=== PATIENT | female | born 1990 | race Caucasian/White ===

== ENCOUNTER 2016-10-13 13:36 | Emergency (ER) | payer OTHER ==
[2016-10-13 13:44] VITALS: BP 128/65
--- NOTE | 2016-10-13 13:57 | UC ---
Throat Pain/Nasal Colin HPI - HPI Summary HPI Summary: worsening sore throat for the past 3 days - History of Current Complaint Chief Complaint: UCRespiratory Stated Complaint: THROAT PAIN Time Seen by Provider: 10/13/16 13:42 Hx Obtained From: Patient Hx Last Menstrual Period: 09/30/16 ?: No Onset/Duration: Sudden Onset, Lasting Days - 3, Still Present Severity: Moderate Pain Intensity: 5 Pain Scale Used: 0-10 Numeric Cough: None Associated Signs & Symptoms: Positive: Nasal Discharge - Allergies/Home Medications Allergies/Adverse Reactions: Allergies Allergy/AdvReac Type Severity Reaction Status Date / Time No Known Allergies Allergy Verified 03/18/16 17:17 Home Medications: Home Medications Ascorbic Acid TAB* [Vitamin C TAB*] 500 mg PO DAILY 10/13/16 [History Confirmed 10/13/16] Ibuprofen [Advil] 800 mg PO 10/13/16 [History] Vitamin B Complex TAB* [Complex B-100*] 10/13/16 [History] PMH/Surg Hx/FS Hx/Imm Hx Previously Healthy: No Endocrine History Of: Denies: Diabetes, Thyroid Disease Cardiovascular History Of: Denies: Cardiac Disorders, Hypertension Respiratory History Of: Denies: COPD, Asthma GI/ History Of: Denies: Ulcer Psychological History Of: Reports: Depression - Surgical History Surgical History: None - Family History Known Family History: Negative: Diabetes Family History: no reported cardio vascular issues in family lineage, no recent illness exposures - Social History Occupation: Employed Full-time, Student Lives: With Family Alcohol Use: None Substance Use Type: None Smoking Status (MU): Never Smoked Tobacco - Immunization History Most Recent Influenza Vaccination: unknown Most Recent Tetanus Shot: unknown Most Recent Pneumonia Vaccination: none Review of Systems Constitutional: Negative Skin: Negative Eyes: Negative ENT: Sore Throat, Ear Ache, Nasal Discharge Respiratory: Cough Cardiovascular: Negative Gastrointestinal: Negative Genitourinary: Negative Motor: Negative Neurovascular: Negative Musculoskeletal: Myalgia Neurological: Negative Psychological: Negative All Other Systems Reviewed And Are Negative: Yes Physical Exam Triage Information Reviewed: Yes Appearance: Well-Appearing, No Pain Distress, Well-Nourished Vital Signs: Initial Vital Signs Temp 97.8 F 10/13/16 13:39 Pulse 69 10/13/16 13:39 Resp 18 10/13/16 13:39 BP 128/65 10/13/16 13:39 Pulse Ox 100 10/13/16 13:39 Vital Signs Reviewed: Yes Eye Exam: Normal Eyes: Positive: Conjunctiva Clear ENT Exam: Normal ENT: Positive: Normal ENT inspection, Hearing grossly normal, Pharyngeal erythema, TMs normal, Tonsillar swelling. Negative: Nasal congestion, Nasal drainage, Trismus, Muffled/hoarse voice Dental Exam: Normal Neck exam: Normal Neck: Positive: Supple, Nontender, No Lymphadenopathy Respiratory Exam: Normal Respiratory: Positive: Chest non-tender, Lungs clear, Normal breath sounds, No respiratory distress, No accessory muscle use Cardiovascular Exam: Normal Cardiovascular: Positive: RRR, No Murmur, Pulses Normal, Brisk Capillary Refill Musculoskeletal Exam: Normal Musculoskeletal: Positive: Strength Intact, ROM Intact, No Edema Neurological Exam: Normal Neurological: Positive: Alert, Muscle Tone Normal Psychological Exam: Normal Skin Exam: Normal Diagnostics - Laboratory Diagnostic Studies Completed/Ordered: RST (-) Throat Pain/Nasal Course/Dx - Course Assessment/Plan: increase fluids, tylenol, ibuprofen prednisone, follow with pcp in 3-4 days should symptoms worsen or fail the improve - Differential Dx/Diagnosis Differential Diagnosis/HQI/PQRI: Mononucleosis, Pharyngitis, Sinusitis, URI Provider Diagnoses: Viral upper respiratory infection Discharge - Discharge Plan Condition: Stable Disposition: HOME Prescriptions: predniSONE TAB* [Deltasone TAB*] 50 mg PO DAILY #4 tab Patient Education Materials: Prednisone (By mouth), Pharyngitis (ED), Viral Syndrome (ED) Referrals: Jeremías Wilson MD [Primary Care Provider] - 4 Days
== END 2016-10-13 14:36 | disposition home or self-care (01) ==
LOC: UCEAST 13:36
DX: J06.9 Acute upper respiratory infection, unspecified (principal); F32.9 Major depressive disorder, single episode, unspecified
CPT/HCPCS: 87651; 99212; G0463

== ENCOUNTER 2017-01-06 09:20 | Emergency (ER) | payer OTHER ==
[2017-01-06] MEDS ORDERED: NS 0.9% 1000 ML* 1,000 ML IV ONE (11:49)
[2017-01-06] MEDS ORDERED: Ketorolac INJ* 30 MG/ML 1 ML VIAL IV ONE (11:49)
[2017-01-06] MEDS ORDERED: diPHENhydraMINE IV* 50 MG/ML 1 ml VIAL (BENADRYL) IV ONE (11:53)
[2017-01-06] MEDS ORDERED: Ondansetron INJ* 2 MG/ML VIAL IV ONE (11:53)
[2017-01-06 13:58] VITALS: BP 118/68
--- NOTE | 2017-01-06 17:02 | UC ---
Elizabeth Atkins Edward, scribed for Trina Hong DO on 01/06/17 at 1133 . Headache HPI - HPI Summary HPI Summary: 26 y/o female presents to [facility] c/o gradual onset, diffuse, throbbing CHASE for the past 4 days. Patient states the CHASE started as a mild CHASE but got "incredibly worse" today, rated at 10/10 @ triage. Pain is "worse than pain from childbirth ". Patient says this feels more intense than a normal migraine. Patient has been vomiting due to pain (at least 5 episodes in the past 24 hours). The pain is aggravated by bright lights and movement. Associated sx: sore throat ( yesterday but resolved now), lightheadedness and photophobia. Denies body aches , fever, chills, diarrhea, and ABD pain. PMHx migraines. FHx DM, HTN - mom, stroke - grandpa in 70's, cousin of a brain tumor @ 42 y/o. NKDA. Past medications reviewed on visit. - History Of Current Complaint Chief Complaint: UCHeadache Stated Complaint: HEADACHE Hx Obtained From: Patient Hx Last Menstrual Period: 12/21/16 Onset/Duration: Gradual Onset, Lasting Days - 4, Still Present Onset Of Symptoms: Gradual, Still Present Initially Headache Was: Mild Currently Pain Is: Severe Pain Intensity: 10 Pain Scale Used: "Not the worst CHASE ever", but worse than childbirth Timing: Constant Character: Throbbing Location of Headache: Diffuse Aggravating Factor: Position Change, Bright Lights Associated Signs And Symptoms: Positive: Nausea, Vomiting, Other (Noted In Comments) - Positive: sore throat (yesterday but resolved now). Denies body aches, fever, chills, diarrhea, and ABD pain.. Negative: Fever - Allergies/Home Medications Allergies/Adverse Reactions: Allergies Allergy/AdvReac Type Severity Reaction Status Date / Time No Known Allergies Allergy Verified 03/18/16 17:17 Home Medications: Home Medications Acetaminophen [Eq Acetaminophen] 650 mg PO 01/06/17 [History] PMH/Surg Hx/FS Hx/Imm Hx Previously Healthy: No Neurological History: Migraine - Surgical History Surgical History: None - Family History Known Family History: Positive: Hypertension - mom, Diabetes - Mom, Other - Brain cancer - cousin @ 40s. Grandpa - stroke Family History: no reported cardio vascular issues in family lineage, no recent illness exposures - Social History Occupation: Employed Part-time Lives: Alone Alcohol Use: None Substance Use Type: None Smoking Status (MU): Never Smoked Tobacco - Immunization History Most Recent Influenza Vaccination: unknown Most Recent Tetanus Shot: unknown Most Recent Pneumonia Vaccination: none Review of Systems Constitutional: Negative - No fever, chills Skin: Negative Eyes: Negative ENT: Sore Throat - resolved now Respiratory: Negative Cardiovascular: Negative Gastrointestinal: Vomiting - due to pain, Nausea Genitourinary: Negative Motor: Negative Neurovascular: Negative Musculoskeletal: Negative Neurological: Headache, Other - lightheadedness. photophobia Psychological: Negative All Other Systems Reviewed And Are Negative: Yes Physical Exam Triage Information Reviewed: Yes Appearance: Well-Appearing, Well-Nourished, Pain Distress - Moderate Vital Signs: Initial Vital Signs Temp 97.9 F 01/06/17 10:31 Pulse 73 01/06/17 10:31 Resp 18 01/06/17 10:31 BP 120/72 01/06/17 10:31 Pulse Ox 100 01/06/17 10:31 Vital Signs Reviewed: Yes Eyes: Positive: Conjunctiva Clear. Negative: Discharge ENT: Positive: Hearing grossly normal. Negative: Muffled/hoarse voice Neck: Positive: Supple, Nontender Respiratory: Positive: Lungs clear, Normal breath sounds, No respiratory distress, No accessory muscle use Cardiovascular: Positive: RRR, No Murmur Musculoskeletal Exam: Normal Neurological Exam: Normal - A&Ox3, CN II-XII INTACT, SENSORY MOTOR INTACT, REFLEXES INTACT, NO CEREBELLAR SIGNS, FACIAL SYMMETRY, NEGATIVE ROMBERG, NORMAL GAIT, negative kernig's and brudzinsky's Neurological: Positive: Alert, Muscle Tone Normal Psychological: Positive: Age Appropriate Behavior Skin Exam: Normal, Other - Warm, dry, normal color Re-Evaluation - Re-Evaluation 1 Re-Evaluation Time: 13:00 Change: Improved - No change of CHASE, but nausea has approved following treatment of Zofran @ 12:37 Headache Course/Dx - Differential Dx/Diagnosis Differential Diagnosis/HQI/PQRI: Meningitis, Migraine, Sinus Headache, Tension Headache, Viral Syndrome, Other - lyme, brain mass, Provider Diagnoses: chase Discharge - Discharge Plan Condition: Stable Disposition: [facility] Referrals: Jeremías Wilson MD [Primary Care Provider] - The documentation as recorded by the Elizabeth yu Edward accurately reflects the service I personally performed and the decisions made by , Trina Hong DO.
== END 2017-01-06 14:00 | disposition short-term general hospital (02) ==
LOC: UCEAST 09:20
DX: R51 Headache (principal); Z82.3 Family history of stroke; Z84.89 Family history of other specified conditions
CPT/HCPCS: 96360; 96361; 96365; 96374; 96375; 99213; G0463; J1200; J1885; J2405

== ENCOUNTER 2017-01-06 14:30 | Emergency (ER) | payer OTHER ==
[2017-01-06] MEDS ORDERED: Morphine INJ* 4 MG/ML 1 ML SYRINGE IV ONE (14:53)
[2017-01-06] MEDS ORDERED: NS 0.9% 1000 ML* 2,000 ML IV ONE (14:53)
[2017-01-06] MEDS ORDERED: Metoclopramide IV* 5 MG/ML 2 ML VIAL IV ONE (14:53)
[2017-01-06] MEDS ORDERED: diPHENhydraMINE IV* 50 MG/ML 1 ml VIAL (BENADRYL) IV ONE (14:53)
[2017-01-06 15:48] LABS: Hematocrit 39 % (35-47); Hemoglobin 13.1 g/dl (12.0-16.0); Mean Corpuscular HGB Conc 33 g/dl (31-36); Mean Corpuscular Hemoglobin 29 pg (27-31); Mean Corpuscular Volume 87 fL (80-97); Mean Platelet Volume 9 um3 (7.4-10.4); Red Blood Count 4.49 10^6/ul (4.0-5.4); Red Cell Distribution Width 13 % (10.5-15); White Blood Count 6.3 10^3/ul (3.5-10.8)
[2017-01-06 16:04] LABS: ALT 12 U/L (7-52); AST 13 U/L (13-39); Albumin 3.6 g/dL (3.2-5.2); Alkaline Phosphatase 74 U/L (34-104); Anion Gap 9 mmol/L (2-11); BUN/Creatinine Ratio 9.7 (8-20); Blood Urea Nitrogen 7 mg/dL (6-24); CO2 Carbon Dioxide 20 mmol/L (22-32); Calcium 8.4 mg/dL (8.6-10.3); Chloride 109 mmol/L (101-111); EGFR Non-African American 99.5 (>60); Globulin 3.2 g/dL (2-4); Glucose 68 mg/dL (70-100); Sodium 138 mmol/L (133-145); Total Protein 6.8 g/dL (6.4-8.9)
--- NOTE | 2017-01-06 16:23 | RAD ---
Indication: Headaches. CT of the brain was performed without IV contrast. Ventricular structures are midline. No midline shift is noted. The extra-axial spaces are unremarkable. There is no evidence of intracranial mass or hemorrhage. Air-fluid level is noted in the left maxillary sinus consistent with sinusitis. There is mucosal thickening of the ethmoid air cells as well as in the sphenoid sinuses. Bony structures are otherwise unremarkable. IMPRESSION: No intracranial mass or hemorrhage is noted. Mucosal thickening of the ethmoid air cells and sphenoid sinuses with air-fluid level in the left maxillary sinus consistent with chronic and acute sinusitis.
[2017-01-06] MEDS ORDERED: cefTRIAXone(*) 1 GM in NS 0.9% 50 ML* 50 ML IVPB ONE (16:27)
[2017-01-06 16:28] LABS: Erythrocyte Sed Rate 31 mm/Hr (0-14)
[2017-01-06] MEDS ORDERED: Ketorolac INJ* 30 MG/ML 1 ML VIAL IV PUSH ONE (17:48)
[2017-01-06 18:52] VITALS: BP 137/71
--- NOTE | 2017-01-06 18:57 | ED ---
Brenda Atkins Thomas, scribed for Cale Conner MD on 01/06/17 at 1450 . Headache - HPI Summary HPI Summary: The pt is a 26 y/o F presenting to the ED c/o a CHASE that began 4 days ago. The CHASE has become progressively worse since onset and is located in the "entire skull". She rates the pain 10/10. She has had migraine headaches and tension headaches in the past, but "nothing like this". She reports that she used to have HAs that were similar to this 8 years ago. She additionally c/o a sore throat, nausea (this AM), photophobia, vomiting (this AM), neck pain, leg pain, fever (2 days ago but afebrile in the ED). The pt denies CP and SOB. PMHx: depression. PSHx: no smoking, no alcohol, no drugs. - History Of Current Complaint Chief Complaint: EDHeadache Stated Complaint: HEADACHE Time Seen by Provider: 01/06/17 14:45 Hx Obtained From: Patient Hx Last Menstrual Period: 12/21/16 Onset/Duration: Gradual Onset, Started days ago - 4 days, Still Present Currently Pain Is: Current Pain Scale(0-10)= - 10 Timing: Constant Location of Headache: Other: - "entire skull" Associated Signs And Symptoms: Nausea, Vomiting, Fever - afebrile in ED, febrile 2 days ago, Neck Pain, Visual Changes - photophobia, Other (Noted In Comments) - POS: sore throat, leg pain Related History: Similar Episode/DX As: - somewhat similar to CHASE 8 years ago - Allergies/Home Medications Allergies/Adverse Reactions: Allergies Allergy/AdvReac Type Severity Reaction Status Date / Time No Known Allergies Allergy Verified 03/18/16 17:17 PMH/Surg Hx/FS Hx/Imm Hx Previously Healthy: No Endocrine/Hematology History: Denies: Hx Diabetes, Hx Thyroid Disease Cardiovascular History: Denies: Hx Hypertension Respiratory History: Denies: Hx Asthma, Hx Chronic Obstructive Pulmonary Disease (COPD) GI History: Denies: Hx Ulcer Psychiatric History: Reports: Hx Depression Infectious Disease History: No Infectious Disease History: Denies: Hx Hepatitis, Hx Human Immunodeficiency Virus (HIV), Traveled Outside the [place] in Last 30 Days - Family History Known Family History: Negative: Hypertension, Diabetes Family History: no reported cardio vascular issues in family lineage, no recent illness exposures - Social History Alcohol Use: None Substance Use Type: Reports: None Smoking Status (MU): Never Smoked Tobacco Review of Systems Positive: Fever - afebrile in ED but febrile 2 days ago Positive: Photophobia Positive: Sore Throat Cardiovascular: Negative Negative: Chest Pain Respiratory: Negative Negative: Shortness Of Breath Positive: Vomiting - this AM, Nausea - this AM Genitourinary: Negative Musculoskeletal: Other - POS: neck pain, leg pain Skin: Negative Positive: Headache - gradual onset 4 days ago and progressively worse, 04/02, "entire skull" Psychological: Normal All Other Systems Reviewed And Are Negative: Yes Physical Exam - Summary Physical Exam Summary: VITAL SIGNS: Reviewed. GENERAL: ~Patient is a well-developed and nourished (MALE OR FEMALE) who is lying comfortable in the stretcher. ~Patient is not in any acute respiratory distress. HEAD AND FACE: No signs of trauma. ~No ecchymosis, hematomas or skull depressions. No sinus tenderness. EYES: Slight photophobia. PERRLA, EOMI x 2, No injected conjunctiva, no nystagmus. EARS: Hearing grossly intact. Ear canals and tympanic membranes are within normal limits. MOUTH: Oropharynx within normal limits. NECK: Supple, trachea is midline, no adenopathy, no JVD, no carotid bruit, no c- spine tenderness, neck with full ROM. CHEST: Symmetric, no tenderness at palpation LUNGS: Clear to auscultation bilaterally. No wheezing or crackles. CVS: Regular rate and rhythm, S1 and S2 present, no murmurs or gallops appreciated. ABDOMEN: Soft, non-tender. No signs of distention. No rebound no guarding, and no masses palpated. Bowel sounds are normal. EXTREMITIES: FROM in all major joints, no edema, no cyanosis or clubbing. NEURO: Alert and oriented x 3. No acute neurological deficits. Speech is normal and follows commands. SKIN: Dry and warm Triage Information Reviewed: Yes Vital Signs On Initial Exam: Initial Vitals Temp Pulse Resp BP Pulse Ox 98.9 F 72 20 139/74 100 01/06/17 14:36 01/06/17 14:36 01/06/17 14:36 01/06/17 14:36 01/06/17 14:36 Vital Signs Reviewed: Yes Diagnostics - Vital Signs Vital Signs Temp Pulse Resp BP Pulse Ox 01/06/17 14:36 98.9 F 72 20 139/74 100 - Laboratory Lab Results: Lab Results 01/06/17 01/06/17 01/06/17 Range/Units 15:35 15:35 15:35 WBC 6.3 (3.5-10.8) 10^3/ul RBC 4.49 (4.0-5.4) 10^6/ul Hgb 13.1 (12.0-16.0) g/dl Hct 39 (35-47) % MCV 87 (80-97) fL MCH 29 (27-31) pg MCHC 33 (31-36) g/dl RDW 13 (10.5-15) % Plt Count 211 (150-450) 10^3/ul MPV 9 (7.4-10.4) um3 Neut % (Auto) 60.6 (38-83) % Lymph % (Auto) 26.4 (25-47) % [place] % (Auto) 11.5 H (1-9) % Eos % (Auto) 1.1 (0-6) % Baso % (Auto) 0.4 (0-2) % Absolute Neuts (auto) 3.8 (1.5-7.7) 10^3/ul Absolute Lymphs (auto) 1.7 (1.0-4.8) 10^3/ul Absolute Monos (auto) 0.7 (0-0.8) 10^3/ul Absolute Eos (auto) 0.1 (0-0.6) 10^3/ul Absolute Basos (auto) 0 (0-0.2) 10^3/ul Absolute Nucleated RBC 0 10^3/ul Nucleated RBC % 0 ESR 31 H (0-14) mm/Hr Sodium 138 (133-145) mmol/L Potassium 4.0 (3.5-5.0) mmol/L Chloride 109 (101-111) mmol/L Carbon Dioxide 20 L (22-32) mmol/L Anion Gap 9 (2-11) mmol/L BUN 7 (6-24) mg/dL Creatinine 0.72 (0.51-0.95) mg/dL Est GFR ( Amer) 128.0 (>60) Est GFR (Non-Af Amer) 99.5 (>60) BUN/Creatinine Ratio 9.7 (8-20) Glucose 68 L (70-100) mg/dL Lactic Acid 0.6 (0.5-2.0) mmol/L Calcium 8.4 L (8.6-10.3) mg/dL Total Bilirubin 0.40 (0.2-1.0) mg/dL AST 13 (13-39) U/L ALT 12 (7-52) U/L Alkaline Phosphatase 74 (34-104) U/L Total Protein 6.8 (6.4-8.9) g/dL Albumin 3.6 (3.2-5.2) g/dL Globulin 3.2 (2-4) g/dL Albumin/Globulin Ratio 1.1 (1-3) Beta HCG, Quant < 0.60 mIU/mL Group A Strep Rapid (Negative) 01/06/17 Range/Units 16:42 WBC (3.5-10.8) 10^3/ul RBC (4.0-5.4) 10^6/ul Hgb (12.0-16.0) g/dl Hct (35-47) % MCV (80-97) fL MCH (27-31) pg MCHC (31-36) g/dl RDW (10.5-15) % Plt Count (150-450) 10^3/ul MPV (7.4-10.4) um3 Neut % (Auto) (38-83) % Lymph % (Auto) (25-47) % [place] % (Auto) (1-9) % Eos % (Auto) (0-6) % Baso % (Auto) (0-2) % Absolute Neuts (auto) (1.5-7.7) 10^3/ul Absolute Lymphs (auto) (1.0-4.8) 10^3/ul Absolute Monos (auto) (0-0.8) 10^3/ul Absolute Eos (auto) (0-0.6) 10^3/ul Absolute Basos (auto) (0-0.2) 10^3/ul Absolute Nucleated RBC 10^3/ul Nucleated RBC % ESR (0-14) mm/Hr Sodium (133-145) mmol/L Potassium (3.5-5.0) mmol/L Chloride (101-111) mmol/L Carbon Dioxide (22-32) mmol/L Anion Gap (2-11) mmol/L BUN (6-24) mg/dL Creatinine (0.51-0.95) mg/dL Est GFR ( Amer) (>60) Est GFR (Non-Af Amer) (>60) BUN/Creatinine Ratio (8-20) Glucose (70-100) mg/dL Lactic Acid (0.5-2.0) mmol/L Calcium (8.6-10.3) mg/dL Total Bilirubin (0.2-1.0) mg/dL AST (13-39) U/L ALT (7-52) U/L Alkaline Phosphatase (34-104) U/L Total Protein (6.4-8.9) g/dL Albumin (3.2-5.2) g/dL Globulin (2-4) g/dL Albumin/Globulin Ratio (1-3) Beta HCG, Quant mIU/mL Group A Strep Rapid Negative (Negative) Result Diagrams: 01/06/17 15:35 01/06/17 15:35 Lab Statement: Any lab studies that have been ordered have been reviewed, and results considered in the medical decision making process. - CT CT Brain CT Interpretation: Positive (See Comments) - No intracranial mass or hemorrhage is noted. Mucosal thickening of the ethmoid air cells and sphenoid sinuses with air-fluid level in the left maxillary sinus consistent with chronic and acute sinusitis. CT Interpretation Completed By: Radiologist Re-Evaluation - Re-Evaluation First Eval Re-Evaluation Time: 17:49 Change: Improved Comment: She is feeling much better. Her pain is now a 2-3/10. The pt declines an LP. Headache Course/Dx - Course Assessment/Plan: The pt is a 26 y/o F presenting to the ED c/o a CHASE that began 4 days ago. The CHASE has become progressively worse since onset and is located in the "entire skull". She rates the pain 10/10. She has had migraine headaches and tension headaches in the past, but "nothing like this". She reports that she used to have HAs that were similar to this 8 years ago. She additionally c/ o a sore throat, nausea (this AM), photophobia, vomiting (this AM), neck pain, leg pain, fever (2 days ago but afebrile in the ED). The pt denies CP and SOB. PMHx: depression. PSHx: no smoking, no alcohol, no drugs. CT Brain showed No intracranial mass or hemorrhage is noted. Mucosal thickening of the ethmoid air cells and sphenoid sinuses with air-fluid level in the left maxillary sinus consistent with chronic and acute sinusitis.. Test results are within normal limits except an ESR of 31. Rapid strep test was negative. In the ED course, the pt was given IV fluids, Benadryl, Reglan, Morphine, and Rocephin for the pain. The patients symptoms improved. However, she still had a headache of 2-3/ 10. I offered the patient an LP although I believe a low probability of meningitis. The patient refused an LP. She understands the benefits and risks of an LP. The patient was discharged home to follow up with her PCP. She was given Augmentin and naproxen for the pain. She was instructed to return if she develops any new pain, fevers, neck pain, or photophobia. The patient understands and agrees. She is A&Ox3 and hemodynamically stable. I discussed all the findings and test results with the patient. Patient was instructed to return to the emergency room immediately if any of the symptoms return or worsens. Patient understands and agrees. Plan of care was discussed with the patient and patient understands and agrees with the plan of care. All questions were answered at patient satisfaction. There were no further complaints or concerns. Patient is alert and oriented x 3. Patient vital signs are stable. Patient is to follow up with primary care physician in the next 2 to 3 days. Patient understands and agrees. - Diagnoses Differential Diagnosis/HQI/PQRI: CVA, Meningitis, Migraine, Sinus Headache, Subarachnoid Hemorrhage, Tension Headache Provider Diagnoses: Acute sinusitis Discharge - Discharge Plan Condition: Stable Disposition: HOME Prescriptions: Amoxicillin/Clavulanate TAB* [Augmentin TAB 875*] 875 mg PO BID #20 tab Naproxen TAB* [Naprosyn 250 mg TAB*] 500 mg PO Q8H PRN #30 tab PRN Reason: Pain Patient Education Materials: Sinusitis (ED) Referrals: Jeremías Wilson MD [Primary Care Provider] - 3 Days The documentation as recorded by the Brenda yu Thomas accurately reflects the service I personally performed and the decisions made by me, Cale Conner MD.
== END 2017-01-06 18:54 | disposition home or self-care (01) ==
LOC: ED 14:30
DX: J01.90 Acute sinusitis, unspecified (principal); H53.149 Visual discomfort, unspecified; R51 Headache
CPT/HCPCS: 36415; 70450; 80053; 83605; 84702; 85025; 85652; 87651; 99283; J0696; J1200; J1885; J2270

== ENCOUNTER 2019-04-16 16:39 | Emergency (ER) | payer OTHER ==
--- NOTE | 2019-04-16 16:51 | UC ---
Throat Pain/Nasal Colin HPI - HPI Summary HPI Summary: 28-year-old female with sore throat fever for the past couple of days. She states last evening she vomited 3 times. She started having mild headache over the weekend with body aches as well. She also has a nonproductive cough. - History of Current Complaint Stated Complaint: SORE THROAT Time Seen by Provider: 04/16/19 16:45 Hx Obtained From: Patient Hx Last Menstrual Period: 12/21/16 ?: No Onset/Duration: Gradual Onset Severity: Mild Cough: Nonproductive Associated Signs & Symptoms: Positive: Sinus Discomfort, Nasal Discharge, Fever , Vomiting - Vomited 3 times last evening. - Allergies/Home Medications Allergies/Adverse Reactions: Allergies Allergy/AdvReac Type Severity Reaction Status Date / Time No Known Allergies Allergy Verified 04/16/19 17:13 Home Medications: Home Medications Omeprazole 40 mg PO DAILY 04/16/19 [History Confirmed 04/16/19] PMH/Surg Hx/FS Hx/Imm Hx Previously Healthy: Yes - Surgical History Surgical History: None - Family History Known Family History: Positive: Other - Brain cancer - cousin @ 40s. Grandpa - stroke Negative: Hypertension, Diabetes Family History: no reported cardio vascular issues in family lineage, no recent illness exposures - Social History Occupation: Employed Full-time Lives: With Family Alcohol Use: None Substance Use Type: None Smoking Status (MU): Never Smoked Tobacco - Immunization History Most Recent Influenza Vaccination: unknown Most Recent Tetanus Shot: unknown Most Recent Pneumonia Vaccination: none Review of Systems All Other Systems Reviewed And Are Negative: Yes Constitutional: Positive: Fever ENT: Positive: Sore Throat, Nasal Discharge, Sinus Congestion, Sinus Pain/ Tenderness Respiratory: Positive: Cough - Nonproductive cough. Gastrointestinal: Positive: Vomiting - Vomited 3 times last evening. She has been able to retain liquids today. Neurological: Positive: Headache - Mild Headache, not the worst she's had in her lifetime. Is Patient Immunocompromised?: No Physical Exam Triage Information Reviewed: Yes Appearance: Well-Appearing, No Pain Distress, Well-Nourished Vital Signs Reviewed: Yes Eyes: Positive: Conjunctiva Clear ENT: Positive: Hearing grossly normal, Pharyngeal erythema, Nasal congestion, Nasal drainage, TMs normal, Tonsillar swelling, Tonsillar exudate, Uvula midline. Negative: Trismus, Muffled voice, Hoarse voice Neck: Positive: Supple, Nontender, Enlarged Nodes @ - Right sided tonsillar lymphadenopathy. Respiratory: Positive: No respiratory distress, No accessory muscle use, Rhonchi - Scattered expiratory rhonchi. Cardiovascular: Positive: RRR, No Murmur, Pulses Normal, Brisk Capillary Refill Abdomen Description: Positive: Nontender, No Organomegaly, Soft. Negative: CVA Tenderness (R), CVA Tenderness (L), Hepatomegaly, Splenomegaly Bowel Sounds: Positive: Present Musculoskeletal Exam: Normal Neurological Exam: Normal Psychological Exam: Normal Skin Exam: Normal Throat Pain/Nasal Course/Dx - Course Course Of Treatment: Rapid strep test was negative. I am going to treat the patient for tonsillitis as well as sinusitis with Augmentin 875 mg by mouth twice a day 10 days. Increase fluids. She has a next 3 days off to rest and she is to follow-up with her primary care provider on Saturday if no improvement. - Differential Dx/Diagnosis Provider Diagnosis: Tonsillitis, Sinusitis Discharge ED - Sign-Out/Discharge Documenting (check all that apply): Patient Departure All imaging exams completed and their final reports reviewed: No Studies - Discharge Plan Condition: Fair Disposition: HOME Prescriptions: Amoxicillin/Clavulanate TAB* [Augmentin TAB 875*] 875 mg PO BID 10 Days #20 tab Patient Education Materials: Tonsillitis (ED) Referrals: Jeremías Wilson MD [Primary Care Provider] - Additional Instructions: Increase fluids, warm saltwater gargles, throat lozenges as needed. May take Tylenol every 4 hours and alternate with Motrin every 8 hours for pain or fever. Take the Augmentin with food. Definite follow-up with your primary care provider on Saturday or Saturday if no improvement. - Billing Disposition and Condition Condition: FAIR Disposition: Home - Attestation Statements Provider Attestation: Per institutional requirements, I have reviewed the chart, however, I was not consulted specifically or made aware of this patient by the midlevel provider. I did not personally evaluate, interact with , or disposition this patient.
[2019-04-16 17:03] VITALS: BP 136/87
== END 2019-04-16 17:30 | disposition home or self-care (01) ==
LOC: UCEAST 16:39
DX: J03.90 Acute tonsillitis, unspecified (principal); J32.9 Chronic sinusitis, unspecified
CPT/HCPCS: 87651; 99212; G0463

== ENCOUNTER 2019-07-24 11:08 | Emergency (ER) | payer OTHER ==
[2019-07-24 11:28] VITALS: BP 136/86
--- NOTE | 2019-07-24 11:33 | UC ---
General HPI - HPI Summary HPI Summary: 28 yo female c/o chest discomfort since approx 07/19. Started as sporadic, but now constant. Breathing makes pain worse, but the pain is not primarily pleuritic in nature. No rash. No palpitations. 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 Grandpa - stroke Negative: Hypertension, Diabetes Family History: no reported cardio vascular issues in family lineage, no recent illness exposures - Social History Alcohol Use: None Substance Use Type: None Smoking Status (MU): Never Smoked Tobacco - Immunization History Most Recent Influenza Vaccination: unknown Most Recent Tetanus Shot: unknown Most Recent Pneumonia Vaccination: none Review of Systems All Other Systems Reviewed And Are Negative: Yes Constitutional: Positive: Negative Skin: Positive: Negative Eyes: Positive: Negative ENT: Positive: Negative Respiratory: Positive: Other - see hpi Cardiovascular: Positive: Other - see hpi Gastrointestinal: Positive: Negative Genitourinary: Positive: Negative Motor: Positive: Negative Neurovascular: Positive: Negative Musculoskeletal: Positive: Negative Neurological: Positive: Negative Psychological: Positive: Negative Is Patient Immunocompromised?: No Physical Exam Triage Information Reviewed: Yes Appearance: Well-Nourished - lying down, able to sit up. looks uncomfortable. Vital Signs: Initial Vital Signs Temp 98.0 F 07/24/19 11:24 Pulse 86 07/24/19 11:24 Resp 22 07/24/19 11:24 BP 136/86 07/24/19 11:24 Pulse Ox 98 07/24/19 11:24 Eye Exam: Normal ENT Exam: Normal Neck exam: Normal Neck: Positive: Supple, Nontender Respiratory Exam: Other - Discomfort / tenderness + mid-left ant chest Not directly reproducible. BS equal, clear. Respiratory: Positive: No respiratory distress, No accessory muscle use Cardiovascular Exam: Normal Cardiovascular: Positive: RRR, No Murmur, Pulses Normal, Brisk Capillary Refill Abdominal Exam: Normal Abdomen Description: Positive: Nontender Musculoskeletal Exam: Normal Neurological Exam: Normal Psychological Exam: Normal Skin Exam: Normal Course/Dx - Course Course Of Treatment: EKG SR at 85 bpm, pr 156, qtc 452 chest xray nad Encourage further eval / tx in ED. She carefully considered and expresses understanding and agreement. Declines EMS. Questions as posed answered to the best of my ability. Doubt primarily cardiac, but consider pulmonological / other. - Diagnoses Provider Diagnosis: Chest pain Discharge ED - Sign-Out/Discharge Documenting (check all that apply): Patient Departure All imaging exams completed and their final reports reviewed: Yes - Discharge Plan Condition: Guarded Disposition: HOME-RECOMMEND TO ED Patient Education Materials: Chest Pain (ED) Referrals: Jeremías Wilson MD [Primary Care Provider] - Additional Instructions: Please go to the Emergency Department. Stop and call [address]. - Billing Disposition and Condition Condition: GUARDED Disposition: Home-Recommend to ED
== END 2019-07-24 12:35 | disposition home health service (06) ==
LOC: UCEAST 11:08
DX: R07.9 Chest pain, unspecified (principal)
CPT/HCPCS: 71046; 93005; 99212; G0463

== ENCOUNTER 2019-07-24 12:56 | Emergency (ER) | payer OTHER ==
[2019-07-24 13:28] LABS: ABS Eosinophils 0.3 10^3/ul (0-0.6); ABS Lymphocytes 2.6 10^3/ul (1.0-4.8); ABS Monocytes 0.7 10^3/ul (0-0.8); ABS Neutrophils 4.7 10^3/ul (1.5-7.7); Eosinophil % 3.5 %; Hematocrit 39 % (35-47); Hemoglobin 13.3 g/dL (12.0-16.0); Lymphocyte % 31.7 %; Mean Corpuscular HGB Conc 35 g/dL (31-36); Mean Corpuscular Hemoglobin 29 pg (27-31); Mean Corpuscular Volume 84 fL (80-97); Mean Platelet Volume 7.9 fL (7.4-10.4); Platelet Count 299 10^3/uL (150-450); Red Blood Count 4.61 10^6 /uL (3.70-4.87); Red Cell Distribution Width 15 % (10-15); White Blood Count 8.3 10^3/uL (3.5-10.8)
[2019-07-24 13:37] LABS: INR 0.95 (0.82-1.09)
[2019-07-24 13:49] LABS: Albumin 3.9 g/dL (3.2-5.2); Albumin/Globulin Ratio 1.3 (1-3); BUN/Creatinine Ratio 11.7 (8-20); Calcium 9.2 mg/dL (8.6-10.3); EGFR African American 109.6 (>60); EGFR Non-African American 90.6 (>60); Globulin 3.1 g/dL (2-4); Potassium 4.3 mmol/L (3.5-5.0); Total Bilirubin 0.5 mg/dL (0.2-1.0)
--- NOTE | 2019-07-24 16:29 | ED ---
HPI Chest Pain - HPI Summary HPI Summary: Patient is a 28 y/o F presenting to [facility] with complaints of left lateral chest pain. She states that she awoke with left shoulder pain on 07/19/19. Patient states that this pain gradually moved downwards and settled at her left lateral chest area, where it has been since 07/21/19. She characterizes her pain as being like "hit by a horse". Patient notes pain is worsened with deep breaths and she has been SOB secondary to this. Cough, spitting up blood, and urinary Sx are denied. She denies recent exertion, MVA, or injuries. Patient is on omeprazole but not BC medication. She is a non-smoker. FMHx of SD at age 52, blood clots noted. Pt does not report any fever, chills, erythema of eyes, sore throat, cough, abdominal pain, N/V, dysuria, hematuria, myalgia, edema, rash, or dizziness. On triage, pain is rated 7/10 in severity. Home medications and allergies are reviewed. - History of Current Complaint Chief Complaint: EDChestPainROMI Time Seen by Provider: 07/24/19 15:33 Hx Obtained From: Patient Hx Last Menstrual Period: [id number] Onset/Duration: Started Days Ago, Still Present Timing: Lasting Days Current Severity: Severe Pain Intensity: 8 Pain Scale Used: 0-10 Numeric Chest Pain Location: Left Lateral Character: Other: - "being hit by a horse" Aggravating Factor(s): Deep Breaths Alleviating Factor(s): Nothing Associated Signs and Symptoms: Positive: Chest Pain, Shortness of Breath, Other : - does not report any fever, chills, erythema of eyes, sore throat, cough, abdominal pain, N/V, dysuria, hematuria, myalgia, edema, rash, or dizziness. Negative: Dizziness, Swelling, Fever, Chills, Nausea, Cough, Productive Cough, Nonproductive Cough, Hemoptysis, Abdominal Pain, Vomiting - Allergy/Home Medications Allergies/Adverse Reactions: Allergies Allergy/AdvReac Type Severity Reaction Status Date / Time No Known Allergies Allergy Verified 07/24/19 11:31 Home Medications: Home Medications Folic Acid/Multivit-Min/Lutein [Multi-Vitamin Gummies] 1 chw PO DAILY 07/24/19 [ History Confirmed 07/24/19] PMH/Surg Hx/FS Hx/Imm Hx Endocrine/Hematology History: Denies: Hx Diabetes, Hx Thyroid Disease Cardiovascular History: Denies: Hx Hypertension Respiratory History: Denies: Hx Asthma, Hx Chronic Obstructive Pulmonary Disease (COPD) GI History: Denies: Hx Ulcer Psychiatric History: Reports: Hx Depression - Immunization History Date of Influenza Vaccine: none Infectious Disease History: No Infectious Disease History: Denies: Hx Hepatitis, Hx Human Immunodeficiency Virus (HIV), Traveled Outside the [place] in Last 30 Days - Family History Known Family History: Positive: Other - Brain cancer - cousin @ 40s. Grandpa - stroke Negative: Hypertension, Diabetes Family History: no reported cardio vascular issues in family lineage, no recent illness exposures - Social History Alcohol Use: None Substance Use Type: Reports: None Smoking Status (MU): Never Smoked Tobacco Review of Systems Negative: Fever, Chills Negative: Erythema Negative: Sore Throat Positive: Chest Pain Positive: Shortness Of Breath. Negative: Cough Negative: Abdominal Pain, Vomiting, Nausea Negative: dysuria, hematuria Negative: Myalgia, Edema Negative: Rash Neurological: Other - negative - dizziness All Other Systems Reviewed And Are Negative: Yes Physical Exam - Summary Physical Exam Summary: Constitutional: Well-developed, Well-nourished, Alert. (-) Distressed Skin: Warm, Dry HENT: Normocephalic; Atraumatic Eyes: Conjunctiva normal Neck: Musculoskeletal ROM normal neck. (-) JVD, (-) Stridor, (-) Tracheal deviation Cardio: Rhythm regular, rate normal, Heart sounds normal; Intact distal pulses; The pedal pulses are 2+ and symmetric. Radial pulses are 2+ and symmetric. (-) Murmur Pulmonary/Chest wall: Effort normal. (-) Respiratory distress, (-) Wheezes, (-) Rales Abd: Soft, (-) tenderness, (-) Distension, (-) Guarding, (-) Rebound Musculoskeletal: There is point tenderness at the left 8th lateral rib. (-) Edema Lymph: (-) Cervical adenopathy Neuro: Alert, Oriented x3 Psych: Mood and affect Normal Triage Information Reviewed: Yes Vital Signs On Initial Exam: Initial Vitals Temp Pulse Resp BP Pulse Ox 97.5 F 53 16 138/83 98 07/24/19 13:03 07/24/19 13:03 07/24/19 13:03 07/24/19 13:03 07/24/19 13:03 Vital Signs Reviewed: Yes Procedures - Sedation Patient Received Moderate/Deep Sedation with Procedure: No Diagnostics - Vital Signs Vital Signs Temp Pulse Resp BP Pulse Ox 07/24/19 15:02 97.4 F 52 16 110/64 100 07/24/19 13:03 97.5 F 53 16 138/83 98 - Laboratory Lab Results: Lab Results 07/24/19 07/24/19 07/24/19 Range/Units 13:19 13:19 13:19 WBC 8.3 (3.5-10.8) 10^3/uL RBC 4.61 (3.70-4.87) 10^6 /uL Hgb 13.3 (12.0-16.0) g/dL Hct 39 (35-47) % MCV 84 (80-97) fL MCH 29 (27-31) pg MCHC 35 (31-36) g/dL RDW 15 (10-15) % Plt Count 299 (150-450) 10^3/uL MPV 7.9 (7.4-10.4) fL Neut % (Auto) 56.4 % Lymph % (Auto) 31.7 % Atlantic % (Auto) 7.8 % Eos % (Auto) 3.5 % Baso % (Auto) 0.6 % Absolute Neuts (auto) 4.7 (1.5-7.7) 10^3/ul Absolute Lymphs (auto) 2.6 (1.0-4.8) 10^3/ul Absolute Monos (auto) 0.7 (0-0.8) 10^3/ul Absolute Eos (auto) 0.3 (0-0.6) 10^3/ul Absolute Basos (auto) 0.0 (0-0.2) 10^3/ul Absolute Nucleated RBC 0.0 10^3/ul Nucleated RBC % 0.0 INR (Anticoag Therapy) 0.95 (0.82-1.09) D-Dimer, Quantitative Pending Sodium 140 (135-145) mmol/L Potassium 4.3 (3.5-5.0) mmol/L Chloride 107 (101-111) mmol/L Carbon Dioxide 27 (22-32) mmol/L Anion Gap 6 (2-11) mmol/L BUN 9 (6-24) mg/dL Creatinine 0.77 (0.51-0.95) mg/dL Est GFR ( Amer) 109.6 (>60) Est GFR (Non-Af Amer) 90.6 (>60) BUN/Creatinine Ratio 11.7 (8-20) Glucose 83 (70-100) mg/dL Calcium 9.2 (8.6-10.3) mg/dL Total Bilirubin 0.50 (0.2-1.0) mg/dL AST 20 (13-39) U/L ALT 25 (7-52) U/L Alkaline Phosphatase 88 (34-104) U/L Troponin I 0.00 (<0.03) ng/mL Total Protein 7.0 (6.4-8.9) g/dL Albumin 3.9 (3.2-5.2) g/dL Globulin 3.1 (2-4) g/dL Albumin/Globulin Ratio 1.3 (1-3) 07/24/19 Range/Units 15:56 WBC (3.5-10.8) 10^3/uL RBC (3.70-4.87) 10^6 /uL Hgb (12.0-16.0) g/dL Hct (35-47) % MCV (80-97) fL MCH (27-31) pg MCHC (31-36) g/dL RDW (10-15) % Plt Count (150-450) 10^3/uL MPV (7.4-10.4) fL Neut % (Auto) % Lymph % (Auto) % Atlantic % (Auto) % Eos % (Auto) % Baso % (Auto) % Absolute Neuts (auto) (1.5-7.7) 10^3/ul Absolute Lymphs (auto) (1.0-4.8) 10^3/ul Absolute Monos (auto) (0-0.8) 10^3/ul Absolute Eos (auto) (0-0.6) 10^3/ul Absolute Basos (auto) (0-0.2) 10^3/ul Absolute Nucleated RBC 10^3/ul Nucleated RBC % INR (Anticoag Therapy) (0.82-1.09) D-Dimer, Quantitative Sodium (135-145) mmol/L Potassium (3.5-5.0) mmol/L Chloride (101-111) mmol/L Carbon Dioxide (22-32) mmol/L Anion Gap (2-11) mmol/L BUN (6-24) mg/dL Creatinine (0.51-0.95) mg/dL Est GFR ( Amer) (>60) Est GFR (Non-Af Amer) (>60) BUN/Creatinine Ratio (8-20) Glucose (70-100) mg/dL Calcium (8.6-10.3) mg/dL Total Bilirubin (0.2-1.0) mg/dL AST (13-39) U/L ALT (7-52) U/L Alkaline Phosphatase (34-104) U/L Troponin I 0.00 (<0.03) ng/mL Total Protein (6.4-8.9) g/dL Albumin (3.2-5.2) g/dL Globulin (2-4) g/dL Albumin/Globulin Ratio (1-3) Result Diagrams: 07/24/19 13:19 07/24/19 13:19 Lab Statement: Any lab studies that have been ordered have been reviewed, and results considered in the medical decision making process. - CT CTA CHEST CT Interpretation Completed By: Radiologist Summary of CT Findings: IMPRESSION: 1. No visible acute pulmonary embolism. 2. No aortic dissection. THIS REPORT WAS REVIEWED BY ED PHYSICIAN. - EKG 1322 Cardiac Rate: NL - rate of 60 BPM EKG Rhythm: Sinus Rhythm Summary of EKG Findings: EKG showed NSR with rate of 60 BPM, no STEMI. ED physician has reviewed and interpreted this EKG. Re-Evaluation - Re-Evaluation First Eval Re-Evaluation Time: 17:50 Comment: D-dimer is negative. Patient is agreeable to proceed with CTA. Chest Pain Course/Dx - Course Course Of Treatment: Patient is a 28 y/o F presenting to [facility] with complaints of left lateral chest pain. She states that she awoke with left shoulder pain on 07/19/19. Patient states that this pain gradually moved downwards and settled at her left lateral chest area, where it has been since 07/21/19. She characterizes her pain as being like "hit by a horse". Patient notes pain is worsened with deep breaths and she has been SOB secondary to this. Cough, spitting up blood, and urinary Sx are denied. She denies recent exertion, MVA, or injuries. There is point tenderness at the left 8th lateral rib. CXR done at recent previous UC visit was noted to be NAD. EKG showed NSR with rate of 60 BPM , no STEMI. Bloodwork was within normal limits. D-dimer negative, first and second trops were negative. During ED course, patient received ibuprofen 600 mg PO. Patient is agreeable to proceed with CTA. CTA CHEST IMPRESSION: 1. No visible acute pulmonary embolism. 2. No aortic dissection. There is no evidence of pericarditis or pulmonary embolism. No suspicion of SD. Sx are possibly musculoskeletal in nature. Patient was discharged to home and will follow up with PCP. - Diagnoses Provider Diagnoses: Chest wall pain Discharge ED - Sign-Out/Discharge Documenting (check all that apply): Patient Departure - discharge - Discharge Plan Condition: Stable Disposition: HOME Prescriptions: Naproxen TAB* [Naprosyn 250 mg TAB*] 500 mg PO Q8H PRN #30 tab PRN Reason: Pain - Moderate To Severe oxyCODONE/Acetamin 5/325 MG* [Percocet 5/325 TAB*] 1 tab PO Q6H PRN #8 tab MDD 4 PRN Reason: Pain - Severe Patient Education Materials: Chest Wall Pain (ED) Referrals: Jeremías Wilson MD [Primary Care Provider] - 3 Days Additional Instructions: PLEASE RETURN TO ED FOR ANY NEW OR WORSENING SYMPTOMS. PLEASE FOLLOW UP WITH YOUR PRIMARY CARE PHYSICIAN WITHIN THREE DAYS. - Attestation Statements Document Initiated by Scribe: Yes Documenting Scribe: LAMINE DU Provider For Whom Scribe is Documenting (Include Credential): JYOTI LOPEZ MD Scribe Attestation: LAMINE Atkins, scribed for JYOTI LOPEZ MD on 07/24/19 at 2310. Status of Scribe Document: Ready
[2019-07-24] MEDS ORDERED: Ibuprofen TAB* 600 MG PO ONE (16:33)
[2019-07-24] MEDS ORDERED: Iohexol 350* (CONTRAST) 500 ML MDV IV ONE (18:00)
[2019-07-24 19:22] VITALS: BP 127/62
== END 2019-07-24 19:18 | disposition home or self-care (01) ==
LOC: ED 12:56
DX: R07.89 Other chest pain (principal); R06.02 Shortness of breath; Z82.49 Family history of ischemic heart disease and other diseases of the circulatory system
CPT/HCPCS: 36415; 71275; 80053; 84484; 85025; 85379; 85610; 93005; 99283; A9270-GY; Q9967